=== PATIENT | female | born 1990 | race Caucasian/White ===

== ENCOUNTER 2019-04-21 17:12 | Emergency (ER) | payer MEDICAID, SELFPAY ==
[2018-07-30 11:28] VITALS: BMI 40.4
[2019-04-21 17:12] VITALS: BP 164/116; PULSE 86; RESP 16; TEMP 36.2; O2SAT 99; BMI 37.2
--- NOTE | 2019-04-21 17:50 | ED.DCSUM_ITS ---
- ER Visit Summary Date of Service: 04/21/19 Chief Complaint: [Back pain] History of Present Illness: The patient is a 28 F [presents to the emergency department complaint of pain in her back about 6 hours ago. Patient states that she was at work when she stood up out of a chair to go on bike she felt severe pain in the low back. Patient states intermittently he will have pain that radiates on the back of both legs to about the knees. Denies any weakness in extremities. She denies any change in bowel bladder function. Denies any trauma to low back. Patient states that she has been also sick for about 2 weeks she had cold symptoms and was getting better until yesterday she started feeling worse again. Patient is coughing but not bringing up much phlegm. She has not had any fevers. Patient denies any illicit drug use.] Physical Examination: [HEENT-PERRLA, EOMI. Cranial nerves II through XII grossly intact. TMs clear. Mucous membranes moist. No adenopathy. No nuchal rigidity. Negative Kernig's and negative Brudzinski sign. Cardiovascular-regular rate and rhythm without murmur or ectopy Lungs-clear to auscultation, chest wall stable without crepitus or subcu emphysema Abdomen-normoactive bowel sounds, soft, nontender, no rebound or rigidity, no peritoneal signs. Back exam-patient has some tenderness palpation over the lower lumbar spine paraspinal musculature on the left mostly. He has negative straight leg raises. Deep tendon reflexes are plus 2 out of 4 bilaterally at the patella and Achilles. Patient has normal L5 extension bilaterally. There is no erythema warmth noted to the skin. There is no evidence of any abscess. Extremities-intact ?4, normal range of motion, normal pulses, atraumatic] Test Results: [None indicated] Emergency Department Course and Treatment: [Patient will be given a dose of Zithromax.] Treatment Plan: [Patient will be started on Naprosyn, Flexeril, [place], and Zithromax] Disposition: [Discharged home in stable condition] Impression: [Neck pain URI] This note was generated with [employer] software. It may contain incorrect words, spelling, and punctuation that were not noted in review of the chart prior to signing
--- NOTE | 2019-04-21 17:52 | ED.DEP ---
ED Disposition - Plan for ED Patient: Instructions: BACK SPASM, No Trauma, BACK PAIN w/ SCIATICA, BRONCHITIS, Antiobiotic Treatment (Adult) Prescriptions: cycloBENZAPRine HCl [Flexeril] 10 mg PO TID PRN #20 tab PRN Reason: Muscle Spasm Prescription Printed Naproxen [Naprosyn] 500 mg PO BID PRN #20 tab Prescription Printed Hydrocodone Bitart/Apap 5-325 [[place] 5MG-325MG] 1 tab PO Q4H PRN PRN 2 Days #14 tab PRN Reason: Pain Prescription Printed Azithromycin [Zithromax] 250 mg PO DAILY #4 tab Prescription Printed
--- NOTE | 2019-04-21 17:56 | ED.DEP ---
ED Disposition - Plan for ED Patient: Instructions: BACK SPASM, No Trauma, BRONCHITIS, Antiobiotic Treatment (Adult), BACK PAIN w/ SCIATICA Prescriptions: cycloBENZAPRine HCl [Flexeril] 10 mg PO TID PRN #20 tab PRN Reason: Muscle Spasm Prescription Printed Naproxen [Naprosyn] 500 mg PO BID PRN #20 tab Prescription Printed Hydrocodone Bitart/Apap 5-325 [[place] 5MG-325MG] 1 tab PO Q4H PRN PRN 2 Days #14 tab PRN Reason: Pain Prescription Printed Azithromycin [Zithromax] 250 mg PO DAILY #4 tab Prescription Printed Referrals: Patrice Card DO [STAFF PHYSICIAN] - 3-5 Days
--- NOTE | 2019-04-21 18:04 | DCINST.ED_ITS ---
ED Disposition - Plan for ED Patient: Instructions: BACK SPASM, No Trauma, BRONCHITIS, Antiobiotic Treatment (Adult), BACK PAIN w/ SCIATICA Prescriptions: Doxycycline 100 mg PO BID #20 cap Prescription Printed cycloBENZAPRine HCl [Flexeril] 10 mg PO TID PRN #20 tab PRN Reason: Muscle Spasm Prescription Printed Naproxen [Naprosyn] 500 mg PO BID PRN #20 tab Prescription Printed Hydrocodone Bitart/Apap 5-325 [[place] 5MG-325MG] 1 tab PO Q4H PRN PRN 2 Days #14 tab PRN Reason: Pain Prescription Printed Azithromycin [Zithromax] 250 mg PO DAILY #4 tab Prescription Printed Referrals: Patrice Card DO [STAFF PHYSICIAN] - 3-5 Days
[2019-04-21] MEDS: Doxycycline 100 MG CAPSULE PO (18:12)
[2019-04-21 18:13] VITALS: RESP 16
== END 2019-04-21 18:13 | disposition home or self-care (01) ==
LOC: ED 18:02
PROVIDERS: Emergency Provider Emergency Medicine
DX: M54.2 Cervicalgia (principal); J06.9 Acute upper respiratory infection, unspecified; M54.9 Dorsalgia, unspecified; M79.604 Pain in right leg; M79.605 Pain in left leg; Z72.0 Tobacco use
CPT/HCPCS: 99283